=== PATIENT | female | born 1990 | race African-American/Black ===

== ENCOUNTER 2016-07-16 07:51 | Emergency (ER) | payer OTHER ==
[~2016-07-16] VITALS: Ht 170.2 cm; Wt 69.0 kg
[2016-07-16 09:22] VITALS: BP 108/53
== END 2016-07-16 10:00 | disposition home or self-care (01) ==
LOC: EMS 07:55
DX: J02.9 Acute pharyngitis, unspecified (principal)
CPT/HCPCS: 99282; 99283

== ENCOUNTER 2016-12-10 08:09 | Emergency (ER) | payer OTHER ==
[~2016-12-10] VITALS: Ht 167.6 cm; Wt 63.2 kg
[2016-12-10 08:35] VITALS: BP 101/71
== END 2016-12-10 09:14 | disposition home or self-care (01) ==
LOC: EMS 08:12
DX: J32.9 Chronic sinusitis, unspecified (principal)
CPT/HCPCS: 99283